=== PATIENT | male | born 1985 | race Two or more races ===

== ENCOUNTER 2018-07-14 21:53 | Inpatient (IN) | payer OTHER ==
[~2018-07-14] VITALS: Ht 182.9 cm; Wt 111.1 kg
[2018-07-14] MEDS ORDERED: AUGMENTIN TAB875 MG ORAL (22:09)
[2018-07-14 22:15] VITALS: BP 132/88
--- NOTE | 2018-07-14 22:15 | NUR ---
ED Nurse Note: pt walked in c/o pain on rectum area x 5 days, pt states he thinks he has abscess. noted redness and tenderness. will wait for further orders.
[2018-07-14] MEDS ORDERED: Morphine Sulfate 4mg/ml Inj (IV USE ONLY) IVP ONE (23:00)
[2018-07-14] MEDS ORDERED: Isovue-300 100ml vial INJ PRN (23:00)
[2018-07-14] MEDS ORDERED: Lidocaine HCl 2% Jelly 6ml Tube TOPIC ONE (23:00)
[2018-07-14 23:44] LABS: BASOPHILS % (AUTO) 0.8 % (0.0-2.0); EOSINOPHILS % (AUTO) 0.5 % (0.0-3.0); HEMATOCRIT 40.5 % (42.0-52.0); HEMOGLOBIN 14.1 G/DL (14.2-18.0); MEAN CORPUSCULAR VOLUME 87 FL (80-99); MONOCYTES % (AUTO) 6.6 % (1.0-10.0); NEUTROPHILS % (AUTO) 81.1 % (45.0-75.0); PLATELET COUNT 335 K/UL (150-450); RED BLOOD COUNT 4.63 M/UL (4.70-6.10); RED CELL DISTRIBUTION WIDTH 10.6 % (11.6-14.8); WHITE BLOOD COUNT 17.8 K/UL (4.8-10.8)
[2018-07-14 23:59] LABS: ANION GAP 9 mmol/L (5-15); BLOOD UREA NITROGEN 14 mg/dL (7-18); CALCIUM 9.2 MG/DL (8.5-10.1); CARBON DIOXIDE 27 MMOL/L (21-32); CHLORIDE 102 MMOL/L (98-107); CREATININE 0.9 MG/DL (0.55-1.30); POTASSIUM 3.3 MMOL/L (3.5-5.1); SODIUM 138 MMOL/L (136-145)
[2018-07-15] MEDS ORDERED: Ampicillin/Sulbactam Sod 3 GM in NS 110 ML IVPB ONE ×2
[2018-07-15 00:04] LABS: ALANINE AMINOTRANSFERASE 46 U/L (12-78); ALBUMIN 4.2 G/DL (3.4-5.0); ALBUMIN/GLOBULIN RATIO 1.1 (1.0-2.7); ALKALINE PHOSPHATASE 79 U/L (46-116); ASPARTATE AMINO TRANSFERASE 18 U/L (15-37); BILIRUBIN,TOTAL 0.9 MG/DL (0.2-1.0)
[2018-07-15 00:15] VITALS: BP 114/70
--- NOTE | 2018-07-15 02:25 | Emergency Room Report ---
History of Present Illness General Chief Complaint: Skin Rash/Abscess Present Illness HPI 33-year-old male brought in by self after increased rectal pain. Patient was noted to have prior history of abscess. He had recently been seen at outside emergency department and was started on oral antibiotics. Patient was advised that this would likely need incision and drainage. Patient was noted to have increased subjective fever and chills. He reports having increased pain to the perineal area. He denies prior history of HIV or diabetes.Patient had been having normal bowel movements. Allergies: Uncoded Allergies: GENTAMYCIN (Allergy, Unknown, 07/14/18) Patient History Past Medical History: see triage record Reviewed Nursing Documentation: PMH: Agreed; PSxH: Agreed Nursing Documentation-PMH Hx Asthma: Yes Review of Systems All Other Systems: negative except mentioned in HPI Physical Exam Vital Signs Date Time Temp Pulse Resp B/P (MAP) Pulse Ox O2 Delivery O2 Flow Rate FiO2 07/14/18 22:04 98.4 98 16 132/88 95 Room Air Sp02 EP Interpretation: reviewed, normal General Appearance: normal inspection, well appearing, no apparent distress, alert, GCS 15, non-toxic Head: atraumatic ENT: normal ENT inspection, hearing grossly normal, normal voice Neck: normal inspection, full range of motion, supple, no bony tend Respiratory: normal inspection, lungs clear, normal breath sounds, no respiratory distress, no retraction, no wheezing Cardiovascular #1: regular rate, rhythm, no edema Gastrointestinal: normal inspection, normal bowel sounds, non tender, soft, no guarding, no hernia Genitourinary: no CVA tenderness Musculoskeletal: normal inspection, back normal, normal range of motion Neurologic: normal inspection, alert, oriented x3, responsive, [employer] III-XII nml as tested, speech normal Psychiatric: normal inspection, judgement/insight normal, mood/affect normal Skin: no rash, other - Fluctuant area to rectum without cellulitis Medical Decision Making Diagnostic Impression: Primary Impression: Abscess ER Course Presented for skin lesion.. Differential diagnosis include was not limited to abscess, Lissa's gangrene, tumor among others. Because of complexity of patient's case laboratory testing and imaging studies were ordered. Patient noted to have elevated white blood count. A CT of the abdomen pelvis was ordered. Patient is noted to have some pain to the perianal area. He was given IV pain medications. Dr. Antoni Dumont was contacted for inpatient management due to panel physician. Dr. Ledezma was contacted for surgical consult. Labs Test 07/14/18 23:30 White Blood Count 17.8 K/UL (4.8-10.8) Red Blood Count 4.63 M/UL (4.70-6.10) Hemoglobin 14.1 G/DL (14.2-18.0) Hematocrit 40.5 % (42.0-52.0) Mean Corpuscular Volume 87 FL (80-99) Mean Corpuscular Hemoglobin 30.5 PG (27.0-31.0) Mean Corpuscular Hemoglobin Concent 34.9 G/DL (32.0-36.0) Red Cell Distribution Width 10.6 % (11.6-14.8) Platelet Count 335 K/UL (150-450) Mean Platelet Volume 5.4 FL (6.5-10.1) Neutrophils (%) (Auto) 81.1 % (45.0-75.0) Lymphocytes (%) (Auto) 11.0 % (20.0-45.0) Monocytes (%) (Auto) 6.6 % (1.0-10.0) Eosinophils (%) (Auto) 0.5 % (0.0-3.0) Basophils (%) (Auto) 0.8 % (0.0-2.0) Prothrombin Time 10.1 SEC (9.30-11.50) Prothromb Time International Ratio 1.0 (0.9-1.1) Activated Partial Thromboplast Time 28 SEC (23-33) Sodium Level 138 MMOL/L (136-145) Potassium Level 3.3 MMOL/L (3.5-5.1) Chloride Level 102 MMOL/L (98-107) Carbon Dioxide Level 27 MMOL/L (21-32) Anion Gap 9 mmol/L (5-15) Blood Urea Nitrogen 14 mg/dL (7-18) Creatinine 0.9 MG/DL (0.55-1.30) Estimat Glomerular Filtration Rate > 60 mL/min (>60) Glucose Level 136 MG/DL (74-106) Calcium Level 9.2 MG/DL (8.5-10.1) Total Bilirubin 0.9 MG/DL (0.2-1.0) Aspartate Amino Transf (AST/SGOT) 18 U/L (15-37) Alanine Aminotransferase (ALT/SGPT) 46 U/L (12-78) Alkaline Phosphatase 79 U/L (46-116) Total Protein 8.0 G/DL (6.4-8.2) Albumin 4.2 G/DL (3.4-5.0) Globulin 3.8 g/dL Albumin/Globulin Ratio 1.1 (1.0-2.7) Last Vital Signs Date Time Temp Pulse Resp B/P (MAP) Pulse Ox O2 Delivery O2 Flow Rate FiO2 07/15/18 00:57 97 16 Room Air 07/14/18 23:45 98.4 07/14/18 22:15 132/88 95 Status: improved Disposition: ADMITTED INPATIENT Condition: Stable Referrals: [facility],REFERRING (PCP) Neville Martinez MD Jul 15, 2018 02:25
--- NOTE | 2018-07-15 02:55 | NUR ---
NURSE NOTES: Received a report from the ER Nurse Linda. Waiting for pt's arrival.
--- NOTE | 2018-07-15 02:56 | NUR ---
ED Nurse Note: report given to LAMBERT Burks from [facility] and endorsed care, pt transferred to [facility], all belongings sent w/ pt, vss, ambulatory w/steady gait,resp even and unlabored on RA.
[2018-07-15 03:10] VITALS: BP 119/74
--- NOTE | 2018-07-15 03:10 | NUR ---
NURSE NOTES: Pt arrived in the unit. AAOX4. Able to make needs known. No respiratory distress noted. On room air. C/o buttocks pain, rated 9/10. Skin is intact. Small abscess is noted on the buttocks. Belongings checked. Pt has $178 arshad and debit cards. Pt refused for the arshad to be kept in the safe lock. Bed in lowest position. Call light within reach. Will continue to monitor.
[2018-07-15] MEDS ORDERED: HYDROcodone/Acetamin 5/325 tab ORAL PRN (03:15)
[2018-07-15] MEDS: NS w/KCl 20mEq 1,000 ML IV SCH ×3 (04:20→19:15)
[2018-07-15] MEDS: Piperacillin/Tazobactam 3.375 GM in D5W 110 ML IVPB SCH ×3 (07:11→21:11)
--- NOTE | 2018-07-15 07:20 | NUR ---
NURSE NOTES: Pt received with music head phones on able to verbalize known needs,.Pt is ambulatory, Call light is in reach
--- NOTE | 2018-07-15 07:24 | NUR ---
HAND-OFF: Report given to LAMBERT Aguilar. Kimmie VERDIN endorsed Lauren VERDIN to follow up with the DVT prophylaxis and Code status.
[2018-07-15 08:00] VITALS: BP 134/75
[2018-07-15 08:03] LABS: BASOPHILS % (AUTO) 0.7 % (0.0-2.0); HEMATOCRIT 38.8 % (42.0-52.0); HEMOGLOBIN 13.6 G/DL (14.2-18.0); LYMPHOCYTES % (AUTO) 15.6 % (20.0-45.0); MEAN CORPUSCULAR VOLUME 88 FL (80-99); MONOCYTES % (AUTO) 8.3 % (1.0-10.0); NEUTROPHILS % (AUTO) 74.4 % (45.0-75.0); PLATELET COUNT 313 K/UL (150-450); RED BLOOD COUNT 4.41 M/UL (4.70-6.10); RED CELL DISTRIBUTION WIDTH 10.8 % (11.6-14.8); WHITE BLOOD COUNT 15.5 K/UL (4.8-10.8)
[2018-07-15 08:23] LABS: ALANINE AMINOTRANSFERASE 42 U/L (12-78); ALBUMIN/GLOBULIN RATIO 1.1 (1.0-2.7); ALKALINE PHOSPHATASE 82 U/L (46-116); ANION GAP 12 mmol/L (5-15); ASPARTATE AMINO TRANSFERASE 19 U/L (15-37); BILIRUBIN,TOTAL 0.7 MG/DL (0.2-1.0); BLOOD UREA NITROGEN 11 mg/dL (7-18); CALCIUM 8.9 MG/DL (8.5-10.1); CARBON DIOXIDE 25 MMOL/L (21-32); CHLORIDE 102 MMOL/L (98-107); CREATININE 0.9 MG/DL (0.55-1.30); POTASSIUM 3.7 MMOL/L (3.5-5.1); SODIUM 139 MMOL/L (136-145)
[2018-07-15] MEDS: Morphine Sulfate 2mg/ml Inj(IV/IM USE ONLY) IVP PRN ×2 (08:38→21:19)
--- NOTE | 2018-07-15 10:02 | NUR ---
*-* NO INSURANCE INFORMATION IN THE BAR UNABLE TO SEND CLINICALS *-*
[2018-07-15] MEDS ORDERED: Lidocaine 1% 10mg/ml/Epi 0.005mg/ml 30ml vial INJ PRN (11:15)
--- NOTE | 2018-07-15 11:36 | Diagnostic Imaging Report ---
Indication: Abdominal pain Technique: Continuous helical transaxial imaging of the abdomen and pelvis was obtained from the lung bases to the pubic symphysis during intravenous contrast administration. Coronal 2-D reformats were also obtained. Study obtained in a Siemens sensation [address] Automatic Exposure Control was utilized. Total Dose length Product (DLP): 1209.[address] Dose Index Volume (CTDIvol): 19.07 mGy Comparison: None Findings: There is an approximately 3 x 1.4 cm slightly ill-defined low-attenuation left perianal abscess demonstrated. Please correlate clinically. The lung bases are clear. The liver is low in attenuation consistent with fatty infiltration. The pancreas, spleen, adrenal glands and gallbladder appear unremarkable. There is a cyst in the right kidney. There is no hydronephrosis. No free fluid identified. There is a small left inguinal hernia containing fat. Appendix is normal. IMPRESSION: 3 x 1.4 cm left perianal abscess. Fatty liver Small left inguinal hernia containing fat The CT scanner at [facility] is accredited by the [employer] and the scans are performed using dose optimization techniques as appropriate to a performed exam including Automatic Exposure control.
[2018-07-15 12:00] VITALS: BP 135/68
--- NOTE | 2018-07-15 13:44 | NUR ---
CASE MANAGEMENT:REVIEW 33 YR OLD MALE PRESENTED TO ER CC: HAS BEEN ON AMOXICILLIN FOR RECTAL ABSCESS BUT NOT IMPROVING...PAIN WORSENING SI: PERIANAL ABSCESS 98.5 98 16 132/88 95% ON RA WBC+17.8 IS: LIDOCAINE TOP IV MORPHINE IV ZOFRAN IV AMPICILLIN CT ABD/PELVIS : TO MED/SURG INTERQUAL CRITERIA MET
--- NOTE | 2018-07-15 14:07 | NUR ---
NURSE NOTES: Dr Ledezma completed incision and drainage at bedside . explanation of procedure given by Dr Ledezma
--- NOTE | 2018-07-15 15:22 | Consultation ---
History of Present Illness General Date patient seen: Jul 15, 2018 Reason for Hospitalization: Skin Rash/Abscess Present Illness HPI This is a otherwise healthy 33-year-old male who presented to the emergency department at [facility] complaining of worsening perirectal pain. Patient states the pain began approximately a week ago and has worsened since. He states he noted a small lump few days ago and it has been enlarging since. As patient's condition worsens had come the emergency department for evaluation. Surgery called to evaluate and assist with care and management. Patient seen, patient evaluated, chart reviewed. Physical exam performed and patient identified to have a perirectal abscess requiring incision and drainage. he was identified a significant leukocytosis. Care plan was discussed with patient. Allergies: Uncoded Allergies: GENTAMYCIN (Allergy, Unknown, 07/14/18) Medication History Scheduled Amoxicillin/Clavulanate K (Amox-Clav 875-125 mg Tablet), 875 MG ORAL EVERY 12 HOURS, (Reported) Patient History History Provided By: Patient, Medical Record, PMD Healthcare decision maker Resuscitation status Full Code Advanced Directive on File No Past Medical/Surgical History Past Medical/Surgical History: (1) Abscess (2) Perianal abscess Review of Systems Review of Symptoms General ROS: no weight loss or fever Psychological ROS: no depression or mood changes, no memory loss Ophthalmic ROS: no visual changes or eye irritation ENT ROS: no nasal congestion, hearing loss, dizziness Allergy and Immunology ROS: no allergic symptoms or urticaria Hematological and Lymphatic ROS: no swollen glands, unusual bleeding or bruising Endocrine ROS: no polyuria, polydipsia, weight changes, temperature intolerance Respiratory ROS: no cough, shortness of breath, or wheezing Cardiovascular ROS: no chest pain or dyspnea on exertion Gastrointestinal ROS: denies abdominal pain, bright red blood in stool. Musculoskeletal ROS: no myalgias or arthralgias Neurological ROS: no TIA or stroke symptoms Dermatological ROS: no new or changing skin lesions, rashes or pruritis Physical Exam Physical Exam General appearance: alert, cooperative, no distress, appears stated age Head: Normocephalic, without obvious abnormality, atraumatic Eyes: conjunctivae/corneas clear. PERRL, EOM's intact. Fundi benign Throat: Lips, mucosa, and tongue normal. Teeth and gums normal Neck: supple, symmetrical, trachea midline, no adenopathy, thyroid: not enlarged, symmetric, no tenderness/mass/nodules, no carotid bruit and no JVD Lungs: clear to auscultation bilaterally Heart: regular rate and rhythm, S1, S2 normal, no murmur, click, rub or gallop Abdomen: soft, non-tender. Bowel sounds normal. No masses, no organomegaly Extremities: extremities normal, atraumatic, no cyanosis or edema Pulses: 2+ and symmetric Skin: Skin color, texture, turgor normal. No rashes or lesions; left inferior tender red fluctuant perirectal abscess. no drainage Neurologic: Grossly normal Last 24 Hour Vital Signs Date Time Temp Pulse Resp B/P (MAP) Pulse Ox O2 Delivery O2 Flow Rate FiO2 07/15/18 09:00 Room Air 07/15/18 08:00 98.2 74 16 134/75 (94) 98 07/15/18 03:34 Room Air 07/15/18 03:10 98.5 95 18 119/71 98 Room Air 07/15/18 03:10 97.9 78 20 119/74 (89) 97 07/15/18 00:57 97 16 Room Air 07/15/18 00:15 98.4 94 18 114/70 96 Room Air 07/14/18 23:45 98.4 07/14/18 22:15 98.4 97 16 132/88 95 Room Air 07/14/18 22:04 98.4 98 16 132/88 95 Room Air Intake and Output 07/14/18 07/15/18 18:59 06:59 Intake Total 320 ml Balance 320 ml Intake Oral 70 ml IV Total 250 ml Laboratory Tests Test 07/14/18 23:30 07/15/18 06:50 White Blood Count 17.8 K/UL (4.8-10.8) H 15.5 K/UL (4.8-10.8) H Red Blood Count 4.63 M/UL (4.70-6.10) L 4.41 M/UL (4.70-6.10) L Hemoglobin 14.1 G/DL (14.2-18.0) L 13.6 G/DL (14.2-18.0) L Hematocrit 40.5 % (42.0-52.0) L 38.8 % (42.0-52.0) L Mean Corpuscular Volume 87 FL (80-99) 88 FL (80-99) Mean Corpuscular Hemoglobin 30.5 PG (27.0-31.0) 30.9 PG (27.0-31.0) Mean Corpuscular Hemoglobin Concent 34.9 G/DL (32.0-36.0) 35.1 G/DL (32.0-36.0) Red Cell Distribution Width 10.6 % (11.6-14.8) L 10.8 % (11.6-14.8) L Platelet Count 335 K/UL (150-450) 313 K/UL (150-450) Mean Platelet Volume 5.4 FL (6.5-10.1) L 5.4 FL (6.5-10.1) L Neutrophils (%) (Auto) 81.1 % (45.0-75.0) H 74.4 % (45.0-75.0) Lymphocytes (%) (Auto) 11.0 % (20.0-45.0) L 15.6 % (20.0-45.0) L Monocytes (%) (Auto) 6.6 % (1.0-10.0) 8.3 % (1.0-10.0) Eosinophils (%) (Auto) 0.5 % (0.0-3.0) 1.0 % (0.0-3.0) Basophils (%) (Auto) 0.8 % (0.0-2.0) 0.7 % (0.0-2.0) Prothrombin Time 10.1 SEC (9.30-11.50) Prothromb Time International Ratio 1.0 (0.9-1.1) Activated Partial Thromboplast Time 28 SEC (23-33) Sodium Level 138 MMOL/L (136-145) 139 MMOL/L (136-145) Potassium Level 3.3 MMOL/L (3.5-5.1) L 3.7 MMOL/L (3.5-5.1) Chloride Level 102 MMOL/L (98-107) 102 MMOL/L (98-107) Carbon Dioxide Level 27 MMOL/L (21-32) 25 MMOL/L (21-32) Anion Gap 9 mmol/L (5-15) 12 mmol/L (5-15) Blood Urea Nitrogen 14 mg/dL (7-18) 11 mg/dL (7-18) Creatinine 0.9 MG/DL (0.55-1.30) 0.9 MG/DL (0.55-1.30) Estimat Glomerular Filtration Rate > 60 mL/min (>60) > 60 mL/min (>60) Glucose Level 136 MG/DL (74-106) H 93 MG/DL (74-106) Calcium Level 9.2 MG/DL (8.5-10.1) 8.9 MG/DL (8.5-10.1) Total Bilirubin 0.9 MG/DL (0.2-1.0) 0.7 MG/DL (0.2-1.0) Aspartate Amino Transf (AST/SGOT) 18 U/L (15-37) 19 U/L (15-37) Alanine Aminotransferase (ALT/SGPT) 46 U/L (12-78) 42 U/L (12-78) Alkaline Phosphatase 79 U/L (46-116) 82 U/L (46-116) Total Protein 8.0 G/DL (6.4-8.2) 7.8 G/DL (6.4-8.2) Albumin 4.2 G/DL (3.4-5.0) 4.0 G/DL (3.4-5.0) Globulin 3.8 g/dL 3.8 g/dL Albumin/Globulin Ratio 1.1 (1.0-2.7) 1.1 (1.0-2.7) Hemoglobin A1c 5.4 % (4.3-6.0) Magnesium Level 2.2 MG/DL (1.8-2.4) Height (Feet): 6 Height (Inches): 0.00 Weight (Pounds): 245 Medications Current Medications Medications (Trade) Dose Ordered Sig/Daniel Route PRN Reason Start Time Stop Time Status Last Admin Dose Admin Acetaminophen (Tylenol) 650 mg Q4H PRN ORAL Mild Pain/Temp > 100.5 07/15/18 03:15 08/14/18 03:14 Acetaminophen/ Hydrocodone Bitart ([place] 5/325) 1 tab Q6H PRN ORAL Moderate Pain (Pain Scale 4-6) 07/15/18 03:15 07/22/18 03:14 Iopamidol (Isovue-300 100ml) 100 ml NOW PRN INJ Radiology Procedure 07/14/18 23:00 Morphine Sulfate (Morphine Sulfate) 2 mg Q4H PRN IVP Severe Pain (Pain Scale 7-10) 07/15/18 03:15 07/22/18 03:14 07/15/18 08:38 Ondansetron HCl (Zofran) 4 mg Q6H PRN IVP Nausea & Vomiting 07/15/18 03:15 08/14/18 03:14 Piperacillin Sod/ Tazobactam Sod 3.375 gm/Dextrose 110 ml @ 27.5 mls/hr EVERY 8 HOURS IVPB 07/15/18 06:00 07/20/18 05:59 07/15/18 07:11 Sodium Chloride 1,000 ml @ 125 mls/hr Q8H IV 07/15/18 03:15 08/14/18 03:14 07/15/18 04:20 Vancomycin HCl 1 gm/Dextrose 275 ml @ 183.708 mls/hr Q12HR IVPB 07/15/18 12:15 07/20/18 12:14 Assessment/Plan Problem List: (1) Perianal abscess Assessment & Plan: Is a 33-year-old male with a perirectal abscess. Afebrile hemodynamic stable, leukocytosis. On examination identified to have a left inferior palpable fluctuant tender abscess without spontaneous drainage. Care discussed with patient and incision and drainage recommended. Risk benefits and alternatives discussed patient consented to procedure which was performed at the bedside today. please see Procedure note Okay for diet after surgery Trend labs IV antibiotics Proper hygiene dressing 3 times daily and as needed saturation Thank you for this consultation we will follow with recommendations ICD Codes: K61.0 - Anal abscess SNOMED: [id number] Adam Ledezma Jul 15, 2018 15:21
[2018-07-15 16:00] VITALS: BP 137/71
--- NOTE | 2018-07-15 16:06 | NUR ---
*-* NO INSURANCE INFORMATION IN THE BAR UNABLE TO SEND CLINICALS *-*
[2018-07-15] MEDS: Vancomycin 1 GM in D5W 275 ML IVPB SCH ×2 (16:20→20:59)
--- NOTE | 2018-07-15 18:30 | History and Physical Report ---
DATE OF ADMISSION: 07/15/2018 REASON FOR ADMISSION: Perirectal abscess. HISTORY OF PRESENT ILLNESS: This is a 33-year-old male with no significant medical history. He had diarrhea about two weeks ago that is mostly resolved, but resulted in rectal pain. He came to the emergency room and was noted to have a perirectal abscess. CAT scan of the abdomen and pelvis was obtained, notable only for 3 x 1.4 cm left perianal abscess with fatty liver and a small inguinal hernia. The patient denies any instrumentation to the rectal area. PAST MEDICAL HISTORY: He had cellulitis several years ago that required drainage of an abscess on his legs. ALLERGIES: Gentamicin. MEDICATIONS: None. SOCIAL HISTORY: He denies smoking, alcohol, or substance abuse. FAMILY HISTORY: Noncontributory. REVIEW OF SYSTEMS: A 10-point review of systems was performed and otherwise unremarkable. PHYSICAL EXAMINATION: GENERAL: Well developed and well nourished, in no distress. VITAL SIGNS: Blood pressure 132/88, pulse 97, and respirations 16. Afebrile. Oxygen saturations 95% to 98% on room air. HEENT: Conjunctivae pink. Oropharynx clear. NECK: Supple. LUNGS: Clear. CARDIAC: Regular. Normal S1, S2. No murmur. ABDOMEN: Soft, nontender. RECTAL: Not performed following the ER evaluation per patient request. EXTREMITIES: Without edema. LABORATORY DATA: Notable for potassium 3.3. Glucose 136, repeated 93. White count 17.8 and hemoglobin 14.1. IMPRESSION: 1. Perirectal abscess. 2. Leukocytosis. 3. Hypokalemia. PLAN: 1. Surgical evaluation for drainage. 2. IV antimicrobials. 3. Potassium replacement. 4. Fluid hydration. Antoni Dumont M.D. DR: BRETT JOB#: [id number] CC:
--- NOTE | 2018-07-15 19:30 | NUR ---
HAND-OFF: Report given to Tracy VERDIN.
--- NOTE | 2018-07-15 19:48 | NUR ---
NURSE NOTES: Received patient awake in room, standing, able to verbalize needs, no c/o pain at this time, no s/s of acute distress. IV site dressing reinforced, IV patent and asymptomatic. Bed on lowest position, 2 side rails up, call light within reach.
[2018-07-15 20:00] VITALS: BP 125/69
--- NOTE | 2018-07-15 21:15 | Operative Note - Dictated ---
DATE OF OPERATION: 07/15/2018 PREOPERATIVE DIAGNOSIS: Perirectal abscess. POSTOPERATIVE DIAGNOSIS: Perirectal abscess. PROCEDURE PERFORMED: Incision and drainage of perirectal abscess. ATTENDING SURGEON: Adam Ledezma M.D. DOUGH BRAKE MACHINE OPERATOR: None. ANESTHESIA: Local 1% lidocaine with epinephrine. SPECIMENS: Cultures sent for microbiology. COMPLICATIONS: None. DRAINS: None. Packing and dressing inserted. CONDITION: Stable. IMPLANTS: None. INDICATIONS FOR PROCEDURE: This is a 33-year-old male with worsening perirectal abscess, leukocytosis, examination as noted, and consultation note. Incision and drainage was recommended and indicated. The risks, benefits, and alternatives were discussed with the patient in detail, who expressed understanding and consented to surgery, which was performed at the bedside today on 07/15/2018. OPERATIVE NOTE: The patient was made comfortable at the bedside and placed in the prone position. The perirectal examination was performed and a left inferior perirectal abscess, which was fluctuant, tender, and large without spontaneous drainage was identified. The site was prepped and draped in a standard surgical fashion using Betadine as the prep. Local anesthetic 1% lidocaine with epinephrine was infiltrated about a 8 mL was utilized. Once good anesthetic effect was achieved, a fresh #11 scalpel was used in the apex and maximal area of fluctuance was incised . Immediately upon making skin incision, a significant amount of purulent fluid was evacuated relieving the pressure. An incision was converted to a cruciate incision. Once this was complete, the abscess cavity was evaluated and no loculations or pockets or tunneling was identified. The abscess cavity was irrigated with copious amounts of sterile saline. Once this was complete, hemostasis was identified and the abscess cavity was packed with gauze followed by placement of dressings. The patient tolerated the procedure well. We will continue with packing and dressing changes t.i.d. and p.r.n. We will continue with proper hygiene and showering. Plan for discharge once leukocytosis resolved. The patient tolerated the procedure well. Adam Ledezma M.D. DR: TIM JOB#: [id number] CC:
[2018-07-16] VITALS: BP 135/62
[2018-07-16] MEDS: NS w/KCl 20mEq 1,000 ML IV SCH ×2 (03:15→11:15)
[2018-07-16 04:00] VITALS: BP 117/54
[2018-07-16] MEDS: Piperacillin/Tazobactam 3.375 GM in D5W 110 ML IVPB SCH (05:17)
[2018-07-16 07:36] VITALS: BP 119/66
--- NOTE | 2018-07-16 07:48 | NUR ---
HAND-OFF: Report given to LAMBERT Sanford.
--- NOTE | 2018-07-16 07:54 | NUR ---
NURSE NOTES: pt awake alert, no distress. no sob. call light within reach. bed in lowest position, locked. will monitor.
[2018-07-16] MEDS: Vancomycin 1 GM in D5W 275 ML IVPB SCH (08:47)
--- NOTE | 2018-07-16 09:10 | NUR ---
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 Fatty liver. Small left inguinal hernia containing fat IS:NORCO 5/325 1 TAB MORPHINE 2mg VANCOMYCIN 275ml IVPB ADMITTED TO MED/SURG DC PLAN: RETURN HOME
--- NOTE | 2018-07-16 09:36 | NUR ---
NURSE NOTES: paged dr Dumont for dc order pt wants to go home, paged office spoke w Aye, she will relay msg to dr Tim Ledezma cleared for dc
[2018-07-16] MEDS ORDERED: AUGMENTIN 875-1 EAC1 ORAL (11:57)
[2018-07-16] MEDS ORDERED: COLACE100 MG ORAL (11:57)
[2018-07-16] MEDS ORDERED: ACETAMINOPHEN-1 EAC1 ORAL (11:57)
[2018-07-16 12:00] VITALS: BP 111/82
--- NOTE | 2018-07-16 12:04 | NUR ---
NURSE NOTES: arm band removed, iv removed, all belongings with the pt. dc instructions rendered to pt. per Dr Ledezma dry dressings at home pt perianal abscess s/p i and d, no drainage no swelling no c/o pain.
--- NOTE | 2018-07-16 15:59 | NUR ---
*-* INSURANCE *-* ALL CLINICALS AND REVIEWS HAVE BEEN FAXED TO: [facility] PLEASE FAX THE REVIEW/CLINICAL P- [phone] F- [phone]
--- NOTE | 2018-07-16 23:30 | Progress Note ---
DATE: 07/16/2018 SUBJECTIVE: The patient is status post I and D of his perirectal abscess. The pain is improved. He remains on antimicrobials. OBJECTIVE: VITAL SIGNS: Afebrile, blood pressure 119/66, pulse 80, and respirations 18. LUNGS: Clear. CARDIAC: Regular. No murmur. ABDOMEN: Soft and nontender. RECTAL: Rectal site not examined. Surgical note reviewed. EXTREMITIES: Without edema or no calf tenderness. IMPRESSION: Status post incision and drainage of perirectal abscess with no signs of secondary infection. PLAN: 1. Transition from IV to oral antimicrobials. 2. Wound care. 3. Outpatient followup arranged with surgeon. Antoni Dumont M.D. DR: GERMAN JOB#: [id number] CC:
--- NOTE | 2018-07-18 08:38 | Discharge Summary ---
Discharge Summary Discharge Summary _ DATE OF ADMISSION: 07/15/2018 DATE OF DISCHARGE: 07/16/2018 DISCHARGED BY: REASON FOR ADMISSION: 33 years old male with no significant past medical history, presented with diarrhea for 2 weeks, which mostly resolved, but resulted in rectal pain. Patient was seen in outside emergency department and was started on oral antibiotic due to perirectal abscess Patient was advised, that he most likely will need incision and drainage of perirectal abscess. Patient noted increased rectal pain and reported subjective fevers and chills. He denied prior history of HIV and diabetes. Patient denied any instrumentation in the rectal area. At this time he had normal bowel movement. Upon evaluation vital signs were stable. No fevers Laboratory workup revealed leukocytosis WBC 17.8. CT scan of the abdomen and pelvis revealed 3 x 1.4 cm left perianal abscess along with fatty liver and small inguinal hernia. In emergency department, patient was provided with analgesia. Surgeon was contacted. Patient started on empiric antibiotics. Patient was admitted to medical surgical floor for further management CONSULTANTS: surgery Dr. Ledezma [facility] COURSE: Patient was admitted to medical surgical floor. General surgery consult was requested. Patient subsequently undergone incision and drainage of the perirectal abscess. Pain management was addressed and controlled. Patient was continued on antibiotic. Patient remained afebrile. Leukocytosis trending down. No signs of secondary infection. Antibiotic transitioned to oral upon discharge. Wound care provided. Outpatient follow-up was arranged with surgeon. Due to rapid and unexpected improvement in patient condition, patient was discharged in 1 day. FINAL DIAGNOSES: Perirectal abscess Status post incision and drainage of perirectal abscess DISCHARGE MEDICATIONS: See Medication Reconciliation list. DISCHARGE INSTRUCTIONS: Patient was discharged home. Outpatient follow-up with surgeon as advised. I have been assigned to dictate discharge summary for this account. I was not involved in the patient's management. Breanna Montes NP Jul 18, 2018 08:38
== END 2018-07-16 12:39 | disposition home or self-care (01) | DRG 223 ==
LOC: EMR 23:00 → 4E 07-15 00:26 → EDBEDREQ 07-15 01:56
PROC: 0D9P0ZZ Drainage of Rectum, Open Approach (ICD-10-PCS; principal; 2018-07-15)
DX: K61.1 Rectal abscess (principal); E87.6 Hypokalemia; Z88.1 Allergy status to other antibiotic agents
CPT/HCPCS: 36415; 74177; 80053; 83036; 83735; 85025; 85610; 85730; 86850; 86900; 86901; 87040; 87070; 87181; 87205; 96365; 96375; 99285; J2405; J8499